=== PATIENT | male | born 1965 | race Caucasian/White ===

== ENCOUNTER 2017-09-06 09:24 | Inpatient (IN) | payer OTHER ==
[~2017-09-06] VITALS: Ht 172.7 cm; Wt 88.8 kg
[2017-09-06] MEDS ORDERED: SODIUM CHLORIDE 0.9% 1,000 ML IV ONE ×2 (09:45→12:00)
[2017-09-06] MEDS ORDERED: ONDANSETRON 2MG/ML, 2ML IVPush ONE (10:00)
[2017-09-06] MEDS ORDERED: SODIUM CHLORIDE FLUSH 10ML SYR IVF ONE (10:00)
[2017-09-06] MEDS ORDERED: SODIUM CHLORIDE 0.9% 1,000ML IVBOLUS ONE ×2 (10:00→11:30)
[2017-09-06] MEDS ORDERED: HYDROmorphone 2 MG/ML, 1ML ONE ×4 (10:16→18:55)
[2017-09-06] MEDS ORDERED: ONDANSETRON 2MG/ML, 2ML ONE ×2 (10:16→17:15)
[2017-09-06 10:32] LABS: MEAN CORPUSCULAR HEMOGLOBIN 31.7 pg (27.5-34.5); MEAN CORPUSCULAR VOLUME 93.4 fL (81-97); MEAN PLATELET VOLUME 8.8 fL (7.4-10.4); PLATELET COUNT 186 x10^3/uL (130-400); RED CELL DISTRIBUTION WIDTH 13.5 % (9.4-14.8)
[2017-09-06] MEDS: HYDROmorphone 1 MG/ML, 1ML IVPush PRN ×2 (10:32→11:50)
[2017-09-06 10:46] LABS: ALBUMIN 4.1 g/dL (3.4-5.0); ANION GAP 13 mmol/L (5-15); CALCIUM 9.2 mg/dL (8.5-10.1); CHLORIDE 86 mmol/L (98-107)
[2017-09-06 10:50] LABS: ALANINE AMINOTRANSFERASE 32 U/L (12-78); ALKALINE PHOSPHATASE 82 U/L (45-117); BILIRUBIN,TOTAL 2.4 mg/dL (0.2-1.0); TOTAL PROTEIN 8.7 g/dL (6.4-8.2)
[2017-09-06 10:54] LABS: BASOPHILS # (AUTO) 0.02 x10^3/uL (0-0.1); BASOPHILS % (AUTO) 0 % (0-1); EOSINOPHILS % (AUTO) 0 % (1-7); LYMPHOCYTES # (AUTO) 0.33 x10^3/uL (1-3.4); LYMPHOCYTES % (AUTO) 2 % (22-44); MD SCAN; MONOCYTES # (AUTO) 1.22 x10^3/uL (0.2-0.8); MONOCYTES % (AUTO) 6 % (2-9); NEUTROPHILS # (AUTO) 18.02 x10^3/uL (1.8-6.8); NEUTROPHILS % (AUTO) 92 % (42-75)
[2017-09-06] MEDS ORDERED: OMNIPAQUE 350 MG/ML, 100ML BOTTLE ONE (11:29)
[2017-09-06] MEDS ORDERED: CEFOTETAN PMX 1GM/50ML 50 ML ONE (11:56)
[2017-09-06] MEDS ORDERED: MORPHINE SULFATE 4 MG/ML, 1ML IVPush PRN ×2 (12:00→20:30)
[2017-09-06] MEDS ORDERED: SODIUM CHLORIDE FLUSH 10ML SYR IVF PRN (12:00)
[2017-09-06] MEDS ORDERED: CEFOTETAN PMX 1GM/50ML 50 ML IV ONE (12:00)
[2017-09-06] MEDS ORDERED: ONDANSETRON 2MG/ML, 2ML IVPush PRN (12:00)
[2017-09-06 12:04] LABS: MICROSCOPIC INDICATED
[2017-09-06 12:20] LABS: CULTURE INDICATED? NO
[2017-09-06] MEDS: SODIUM CHLORIDE 0.9% 1,000 ML IV SCH ×2 (13:30→20:23)
[2017-09-06 13:32] VITALS: BP 116/75
[2017-09-06] MEDS: HEPARIN 5,000 UNITS/ML, 1ML SQ SCH (14:00)
[2017-09-06] MEDS: morphine SULFATE 10 MG/ML, 1ML IVPush PRN ×2 (14:08→15:12)
[2017-09-06 15:15] LABS: INTERNATIONAL NORMALIZED RATIO 1.03 (0.93-1.1); PROTHROMBIN TIME 10.6 Seconds (9.6-11.5)
[2017-09-06] MEDS: PIPERACILLIN/TAZO/PMX 4.5GM 100 ML IV SCH ×2 (15:47→23:55)
[2017-09-06] MEDS ORDERED: EPINEPHRINE 1 MG/ML, 1ML ONE (16:34)
[2017-09-06] MEDS ORDERED: BUPIVACAINE/PF 0.5% ONE (16:34)
[2017-09-06] MEDS ORDERED: MIDAZOLAM 1 MG/ML, 2ML ONE (16:41)
[2017-09-06] MEDS ORDERED: FENTANYL PF 250 MCG/5ML ONE (16:41)
[2017-09-06] MEDS ORDERED: DEXAMETHASONE 4 MG/ML, 1ML ONE (17:15)
[2017-09-06] MEDS ORDERED: PROPOFOL 10 MG/ML, 20ML ONE (17:15)
[2017-09-06] MEDS ORDERED: NEOSTIGMINE 1 MG/ML, 10ML ONE (17:15)
[2017-09-06] MEDS ORDERED: GLYCOPYRROLATE 0.2MG/1ML, 5ML ONE (17:15)
[2017-09-06] MEDS ORDERED: KETOROLAC 30 MG/1 ML ONE (17:15)
[2017-09-06] MEDS ORDERED: ROCURONIUM 10 MG/ML,10ML ONE (17:15)
[2017-09-06] MEDS ORDERED: SUCCINYLCHOLINE 20 MG/ML, 10ML ONE (17:15)
[2017-09-06 17:19] LABS: POTASSIUM,URINE RANDOM 33 mmol/L; PROTEIN/CREATININE RATIO,URINE 943 (0-200); SODIUM,URINE RANDOM 8 mmol/L; TOTAL PROTEIN,URINE RANDOM 88 mg/dL (0-12)
[2017-09-06 17:21] LABS: CHLORIDE,URINE RANDOM < 10 mmol/L
[2017-09-06] MEDS ORDERED: ACETAMINOPHEN 325 MG TABLET PO PRN (18:00)
[2017-09-06] MEDS ORDERED: LABETALOL 5MG/ML, 20ML IV PRN (18:00)
[2017-09-06] MEDS ORDERED: PROMETHAZINE 12.5 MG SUPP PR PRN (18:00)
[2017-09-06] MEDS ORDERED: MEPERIDINE/PF 25MG/0.5ML IVPush PRN (18:00)
[2017-09-06] MEDS ORDERED: LORazepam 2 MG/ML, 1ML IVPush PRN (18:00)
[2017-09-06] MEDS ORDERED: FENTANYL PF 100 MCG/2ML IV PRN (18:00)
[2017-09-06] MEDS ORDERED: OXYcodone 5 MG/5 ML ORAL.SOL UDC PO PRN (18:00)
[2017-09-06] MEDS ORDERED: hydrALAzine 20 MG/ML, 1ML IV PRN (18:00)
[2017-09-06] MEDS ORDERED: ALBUTEROL SULFATE 2.5 MG/3 ML NPPB PRN (18:00)
[2017-09-06] MEDS ORDERED: ACETAMINOPHEN 650 MG/20.3 ML UDC ONE (18:55)
[2017-09-06] MEDS ORDERED: OXYcodone 5 MG/5 ML ORAL.SOL UDC ONE (18:55)
[2017-09-06] MEDS: HYDROmorphone 1 MG/ML, 1ML IV PRN ×3 (19:00→19:25)
[2017-09-06] MEDS ORDERED: FENTANYL PF 100 MCG/2ML ONE (19:28)
[2017-09-06 20:00] VITALS: BP 108/72
[2017-09-06] MEDS: ONDANSETRON 2MG/ML, 2ML IVPush PRN (20:27)
[2017-09-06] MEDS: LACTATED RINGERS 1,000 ML IV SCH (21:19)
[2017-09-06] MEDS: KETOROLAC 30 MG/1 ML IVPush PRN (21:25)
[2017-09-06] MEDS: HYDROcodone/APAP 5/325 TABLET PO PRN (23:54)
[2017-09-06 23:57] VITALS: BP 107/62
[2017-09-07] MEDS: LACTATED RINGERS 1,000 ML IV SCH ×4 (00:58→22:03)
[2017-09-07] MEDS: HEPARIN 5,000 UNITS/ML, 1ML SQ SCH ×2 (01:31→14:12)
[2017-09-07] MEDS: SODIUM CHLORIDE 0.9% 1,000 ML IV SCH ×2 (01:32→08:13)
[2017-09-07] MEDS: HYDROcodone/APAP 5/325 TABLET PO PRN ×4 (04:12→19:13)
[2017-09-07 04:19] VITALS: BP 100/64
[2017-09-07 05:23] LABS: ANION GAP 7 mmol/L (5-15); CALCIUM 7.7 mg/dL (8.5-10.1); CHLORIDE 96 mmol/L (98-107); CREATININE 0.97 mg/dL (0.7-1.3)
[2017-09-07 05:52] LABS: BASOPHILS % (AUTO) 0 % (0-1); EOSINOPHILS % (AUTO) 0 % (1-7); LYMPHOCYTES # (AUTO) 0.21 x10^3/uL (1-3.4); LYMPHOCYTES % (AUTO) 4 % (22-44); MD NO; MEAN CORPUSCULAR HEMOGLOBIN 32.3 pg (27.5-34.5); MEAN CORPUSCULAR HGB CONC 34.7 g/dL (33.2-36.2); MEAN CORPUSCULAR VOLUME 93.1 fL (81-97); MEAN PLATELET VOLUME 8.8 fL (7.4-10.4); MONOCYTES # (AUTO) 0.51 x10^3/uL (0.2-0.8); MONOCYTES % (AUTO) 9 % (2-9); NEUTROPHILS % (AUTO) 88 % (42-75); PLATELET COUNT 149 x10^3/uL (130-400); RED CELL DISTRIBUTION WIDTH 13.7 % (9.4-14.8)
[2017-09-07] MEDS ORDERED: CEFOTETAN PMX 2GM/50ML 50 ML IV SCH (06:00)
[2017-09-07] MEDS: KETOROLAC 30 MG/1 ML IVPush PRN ×2 (06:38→14:13)
[2017-09-07 07:51] VITALS: BP 98/58
[2017-09-07] MEDS: PIPERACILLIN/TAZO/PMX 4.5GM 100 ML IV SCH ×2 (08:13→16:05)
[2017-09-07 17:30] VITALS: BP 114/63
[2017-09-07] MEDS: CEFOTETAN PMX 2GM/50ML 50 ML IV SCH (17:54)
[2017-09-07 19:23] VITALS: BP 111/73
[2017-09-07] MEDS ORDERED: MELATONIN 5 MG TABLET PO PRN (21:00)
[2017-09-07] MEDS ORDERED: DIPHENHYDRAMINE 50 MG CAPSULE PO PRN (21:00)
[2017-09-08] MEDS: PIPERACILLIN/TAZO/PMX 4.5GM 100 ML IV SCH ×3 (00:04→16:56)
[2017-09-08] MEDS: HYDROcodone/APAP 5/325 TABLET PO PRN ×6 (00:05→22:56)
[2017-09-08] MEDS: HEPARIN 5,000 UNITS/ML, 1ML SQ SCH ×2 (02:42→13:52)
[2017-09-08 02:44] VITALS: BP 116/71
[2017-09-08] MEDS: ONDANSETRON 2MG/ML, 2ML IVPush PRN (06:09)
[2017-09-08] MEDS: CEFOTETAN PMX 2GM/50ML 50 ML IV SCH ×2 (06:09→18:29)
[2017-09-08 07:24] VITALS: BP 121/74
[2017-09-08] MEDS: LACTATED RINGERS 1,000 ML IV SCH ×2 (08:39→18:29)
[2017-09-08] MEDS ORDERED: ALUMINUM/MAG/SIMETHICONE 30 ML UDC PO PRN (09:30)
[2017-09-08] MEDS: FAMOTIDINE 20 MG/2 ML IVPush SCH ×2 (09:50→20:21)
[2017-09-08] MEDS: KETOROLAC 30 MG/1 ML IVPush SCH ×3 (09:50→22:56)
[2017-09-08 13:19] VITALS: BP 117/74
[2017-09-08 19:16] VITALS: BP 122/77
[2017-09-09] MEDS: PIPERACILLIN/TAZO/PMX 4.5GM 100 ML IV SCH ×3 (00:20→15:57)
[2017-09-09] MEDS: HEPARIN 5,000 UNITS/ML, 1ML SQ SCH ×2 (02:24→14:40)
[2017-09-09 02:32] VITALS: BP 124/71
[2017-09-09] MEDS: HYDROcodone/APAP 5/325 TABLET PO PRN ×5 (03:06→20:48)
[2017-09-09] MEDS: LACTATED RINGERS 1,000 ML IV SCH ×2 (04:00→15:57)
[2017-09-09 05:32] LABS: BASOPHILS # (AUTO) 0.04 x10^3/uL (0-0.1); BASOPHILS % (AUTO) 1 % (0-1); EOSINOPHILS # (AUTO) 0.13 x10^3/uL (0-0.4); EOSINOPHILS % (AUTO) 2 % (1-7); LYMPHOCYTES # (AUTO) 0.44 x10^3/uL (1-3.4); LYMPHOCYTES % (AUTO) 7 % (22-44); MD NO; MEAN CORPUSCULAR HEMOGLOBIN 31.9 pg (27.5-34.5); MEAN CORPUSCULAR HGB CONC 34.3 g/dL (33.2-36.2); MEAN PLATELET VOLUME 8.7 fL (7.4-10.4); MONOCYTES # (AUTO) 0.58 x10^3/uL (0.2-0.8); MONOCYTES % (AUTO) 10 % (2-9); NEUTROPHILS # (AUTO) 4.83 x10^3/uL (1.8-6.8); NEUTROPHILS % (AUTO) 80 % (42-75); PLATELET COUNT 186 x10^3/uL (130-400); RED BLOOD COUNT 3.64 x10^6/uL (4.38-5.82); RED CELL DISTRIBUTION WIDTH 13.5 % (9.4-14.8)
[2017-09-09 05:34] LABS: ALBUMIN 2.2 g/dL (3.4-5.0); ANION GAP 9 mmol/L (5-15); CALCIUM 8.1 mg/dL (8.5-10.1); CHLORIDE 95 mmol/L (98-107); CREATININE 0.71 mg/dL (0.7-1.3)
[2017-09-09] MEDS: KETOROLAC 30 MG/1 ML IVPush SCH (06:42)
[2017-09-09 06:54] VITALS: BP 125/74
[2017-09-09] MEDS: CEFOTETAN PMX 2GM/50ML 50 ML IV SCH (07:24)
[2017-09-09] MEDS: FAMOTIDINE 20 MG/2 ML IVPush SCH ×2 (08:22→20:48)
[2017-09-09 12:25] VITALS: BP 129/72
[2017-09-09 20:16] VITALS: BP 134/82
[2017-09-09] MEDS: BISACODYL 10 MG SUPP PR SCH (23:05)
[2017-09-10] MEDS: PIPERACILLIN/TAZO/PMX 4.5GM 100 ML IV SCH ×3 (00:12→15:51)
[2017-09-10] MEDS: LACTATED RINGERS 1,000 ML IV SCH ×3 (02:54→20:00)
[2017-09-10] MEDS: HEPARIN 5,000 UNITS/ML, 1ML SQ SCH ×2 (02:54→13:01)
[2017-09-10 04:36] VITALS: BP 128/78
[2017-09-10 05:27] LABS: BASOPHILS # (AUTO) 0.07 x10^3/uL (0-0.1); BASOPHILS % (AUTO) 1 % (0-1); EOSINOPHILS # (AUTO) 0.13 x10^3/uL (0-0.4); EOSINOPHILS % (AUTO) 2 % (1-7); LYMPHOCYTES # (AUTO) 0.74 x10^3/uL (1-3.4); LYMPHOCYTES % (AUTO) 10 % (22-44); MD NO; MEAN CORPUSCULAR HEMOGLOBIN 31.8 pg (27.5-34.5); MEAN CORPUSCULAR HGB CONC 34.3 g/dL (33.2-36.2); MEAN CORPUSCULAR VOLUME 92.8 fL (81-97); MONOCYTES # (AUTO) 0.74 x10^3/uL (0.2-0.8); MONOCYTES % (AUTO) 10 % (2-9); NEUTROPHILS % (AUTO) 78 % (42-75); PLATELET COUNT 232 x10^3/uL (130-400); RED BLOOD COUNT 3.78 x10^6/uL (4.38-5.82); RED CELL DISTRIBUTION WIDTH 13.3 % (9.4-14.8)
[2017-09-10] MEDS: BISACODYL 10 MG SUPP PR SCH ×2 (08:15→20:51)
[2017-09-10 08:23] VITALS: BP 131/77
[2017-09-10] MEDS: HYDROcodone/APAP 5/325 TABLET PO PRN ×3 (08:23→17:35)
[2017-09-10] MEDS: FAMOTIDINE 20 MG/2 ML IVPush SCH ×2 (08:23→20:51)
[2017-09-10 17:19] VITALS: BP 134/73
[2017-09-10 19:42] VITALS: BP 130/73
[2017-09-11] MEDS: PIPERACILLIN/TAZO/PMX 4.5GM 100 ML IV SCH ×3 (01:20→18:11)
[2017-09-11] MEDS: HEPARIN 5,000 UNITS/ML, 1ML SQ SCH ×2 (01:25→13:32)
[2017-09-11 02:42] VITALS: BP 122/72
[2017-09-11] MEDS: ACETAMINOPHEN 325 MG TABLET PO PRN ×5 (04:00→22:13)
[2017-09-11 04:37] LABS: BASOPHILS # (AUTO) 0.03 x10^3/uL (0-0.1); BASOPHILS % (AUTO) 0 % (0-1); EOSINOPHILS # (AUTO) 0.18 x10^3/uL (0-0.4); EOSINOPHILS % (AUTO) 2 % (1-7); LYMPHOCYTES # (AUTO) 0.84 x10^3/uL (1-3.4); LYMPHOCYTES % (AUTO) 10 % (22-44); MD NO; MEAN CORPUSCULAR HEMOGLOBIN 31.7 pg (27.5-34.5); MEAN CORPUSCULAR VOLUME 93.4 fL (81-97); MEAN PLATELET VOLUME 7.9 fL (7.4-10.4); MONOCYTES # (AUTO) 0.88 x10^3/uL (0.2-0.8); MONOCYTES % (AUTO) 11 % (2-9); NEUTROPHILS # (AUTO) 6.25 x10^3/uL (1.8-6.8); NEUTROPHILS % (AUTO) 76 % (42-75); PLATELET COUNT 259 x10^3/uL (130-400); RED BLOOD COUNT 3.65 x10^6/uL (4.38-5.82); RED CELL DISTRIBUTION WIDTH 13.5 % (9.4-14.8)
[2017-09-11 07:17] VITALS: BP 122/68
[2017-09-11] MEDS: BISACODYL 10 MG SUPP PR SCH (08:48)
[2017-09-11] MEDS: FAMOTIDINE 20 MG/2 ML IVPush SCH ×2 (08:49→21:00)
[2017-09-11] MEDS: LACTATED RINGERS 1,000 ML IV SCH (11:04)
[2017-09-11 13:31] VITALS: BP 117/74
[2017-09-11] MEDS ORDERED: BISACODYL 10 MG SUPP PR PRN (14:30)
[2017-09-11] MEDS ORDERED: POTASSIUM PHOS 4.4 MEQ/ML IV ONE (15:00)
[2017-09-11] MEDS ORDERED: POTASSIUM PHOSPHATE 22 MEQ in SODIUM CHLORIDE 0.9% 500 ML IV ONE (15:30)
[2017-09-11 20:28] VITALS: BP 136/75
[2017-09-12 03:55] VITALS: BP 128/76
[2017-09-12 04:07] LABS: BASOPHILS # (AUTO) 0.04 x10^3/uL (0-0.1); BASOPHILS % (AUTO) 1 % (0-1); EOSINOPHILS # (AUTO) 0.24 x10^3/uL (0-0.4); EOSINOPHILS % (AUTO) 3 % (1-7); LYMPHOCYTES # (AUTO) 0.99 x10^3/uL (1-3.4); LYMPHOCYTES % (AUTO) 11 % (22-44); MD NO; MEAN CORPUSCULAR HEMOGLOBIN 31.5 pg (27.5-34.5); MEAN CORPUSCULAR HGB CONC 34.2 g/dL (33.2-36.2); MEAN CORPUSCULAR VOLUME 92.3 fL (81-97); MEAN PLATELET VOLUME 7.5 fL (7.4-10.4); MONOCYTES # (AUTO) 0.86 x10^3/uL (0.2-0.8); MONOCYTES % (AUTO) 10 % (2-9); NEUTROPHILS # (AUTO) 6.52 x10^3/uL (1.8-6.8); NEUTROPHILS % (AUTO) 75 % (42-75); PLATELET COUNT 292 x10^3/uL (130-400); RED BLOOD COUNT 3.67 x10^6/uL (4.38-5.82); RED CELL DISTRIBUTION WIDTH 14.1 % (9.4-14.8)
[2017-09-12] MEDS: PIPERACILLIN/TAZO/PMX 4.5GM 100 ML IV SCH (04:12)
[2017-09-12] MEDS: HEPARIN 5,000 UNITS/ML, 1ML SQ SCH (04:12)
[2017-09-12 04:17] LABS: CHLORIDE 102 mmol/L (98-107)
[2017-09-12 04:22] LABS: ANION GAP 12 mmol/L (5-15); CALCIUM 7.5 mg/dL (8.5-10.1); CREATININE 0.48 mg/dL (0.7-1.3)
[2017-09-12 06:58] VITALS: BP 123/79
[2017-09-12] MEDS: ACETAMINOPHEN 325 MG TABLET PO PRN (09:00)
[2017-09-12] MEDS ORDERED: FAMOTIDINE 20 MG TABLET PO SCH (09:00)
[2017-09-12] MEDS ORDERED: AMOX1TAB64 PO (11:07)
[2017-09-12 12:06] VITALS: BP 138/80
== END 2017-09-12 12:54 | disposition home or self-care (01) | DRG 853 ==
LOC: ED 11:16 → EDIP 12:00 → 4NOR 13:32 → DCLOUNGE 09-12 12:45
PROVIDERS: ADMIT Surgery; ATTEND Family Medicine
PROC: 0DJD4ZZ Inspection of Lower Intestinal Tract, Percutaneous Endoscopic Approach (ICD-10-PCS; 2017-09-06)
PROC: 0DTJ0ZZ Resection of Appendix, Open Approach (ICD-10-PCS; principal; 2017-09-06 17:00)
DX: A41.9 Sepsis, unspecified organism (principal); E43 Unspecified severe protein-calorie malnutrition; K56.609 Unspecified intestinal obstruction, unspecified as to partial versus complete obstruction; E22.2 Syndrome of inappropriate secretion of antidiuretic hormone; N17.9 Acute kidney failure, unspecified; K35.3 Acute appendicitis with localized peritonitis; E83.39 Other disorders of phosphorus metabolism; K56.7 Ileus, unspecified; D64.9 Anemia, unspecified; K21.9 Gastro-esophageal reflux disease without esophagitis; K40.90 Unilateral inguinal hernia, without obstruction or gangrene, not specified as recurrent; Z53.31 Laparoscopic surgical procedure converted to open procedure; Z68.29 Body mass index [BMI] 29.0-29.9, adult
CPT/HCPCS: 36415; 74018; 74177; 76700; 80048; 80053; 81001; 82040; 82140; 82436; 82570; 83605; 83690; 83735; 84100; 84133; 84156; 84300; 85025; 85610; 85730; 87040; 88304; C1729; J0171; J1100; J1170; J1644; J1885; J2250; J2405; J2543; J2704; J2710; J3010; J3490; Q9967; J0330; J2270; J7030; J7040; J7120; S0028; S0074

== ENCOUNTER → 2018-01-06 | Outpatient (CLI) | payer OTHER ==
[~2018-01-06] MED LIST: AMOX1TAB64 PO; No meds per pt.
== END ==
LOC: STAR 11:04
PROVIDERS: ATTEND Surgery
DX: Z02.9 Encounter for administrative examinations, unspecified (principal)

== ENCOUNTER 2018-01-15 08:06 | Inpatient (IN) | payer OTHER ==
[~2018-01-15] VITALS: Ht 172.7 cm; Wt 84.0 kg
[~2018-01-15 08:06] MED LIST changes: +BUPIVACAINE 0.25% ONE
[2018-01-15] MEDS ORDERED: GABAPENTIN 300 MG CAPSULE PO ONE (08:30)
[2018-01-15] MEDS ORDERED: TAMSULOSIN 0.4 MG CAP.ER.24H PO ONE (08:30)
[2018-01-15] MEDS ORDERED: ACETAMINOPHEN 500 MG TABLET PO ONE (08:30)
[2018-01-15] MEDS ORDERED: FAMOTIDINE 20 MG TABLET PO ONE (08:30)
[2018-01-15] MEDS ORDERED: METOCLOPRAMIDE 10MG TABLET PO ONE (08:30)
[2018-01-15] MEDS ORDERED: LACTATED RINGERS 1,000 ML IV SCH ×2 (08:37→18:00)
[2018-01-15 09:08] VITALS: BP 105/69
[2018-01-15] MEDS ORDERED: FENTANYL PF 100 MCG/2ML ONE ×4 (09:47→15:58)
[2018-01-15] MEDS ORDERED: MIDAZOLAM 1 MG/ML, 2ML ONE (09:49)
[2018-01-15] MEDS ORDERED: ROCURONIUM 10 MG/ML,10ML ONE (10:30)
[2018-01-15] MEDS ORDERED: SUCCINYLCHOLINE 20 MG/ML, 10ML ONE (10:30)
[2018-01-15] MEDS ORDERED: KETAMINE 10 MG/ML, 20ML ONE (10:30)
[2018-01-15] MEDS ORDERED: CEFAZOLIN 1,000 MG ONE ×2 (10:30)
[2018-01-15] MEDS ORDERED: DEXAMETHASONE 4 MG/ML, 1ML ONE (10:30)
[2018-01-15] MEDS ORDERED: PROPOFOL 10 MG/ML, 20ML ONE (10:30)
[2018-01-15] MEDS ORDERED: NEOSTIGMINE 1 MG/ML, 10ML ONE (10:30)
[2018-01-15] MEDS ORDERED: GLYCOPYRROLATE 0.2MG/1ML, 5ML ONE (10:30)
[2018-01-15] MEDS ORDERED: BUPIVACAINE/PF-EPI 0.25% 1:200K IM ONE (11:07)
[2018-01-15] MEDS ORDERED: ONDANSETRON 2MG/ML, 2ML ONE (15:57)
[2018-01-15] MEDS: FENTANYL PF 100 MCG/2ML IV PRN ×3 (16:00→16:15)
[2018-01-15] MEDS ORDERED: PROMETHAZINE 25 MG/ML, 1ML ONE (16:23)
[2018-01-15] MEDS ORDERED: ONDANSETRON ODT 8 MG PO PRN (16:30)
[2018-01-15] MEDS ORDERED: PROMETHAZINE 25 MG/ML, 1ML IV PRN (16:30)
[2018-01-15] MEDS ORDERED: ONDANSETRON 2MG/ML, 2ML IVPush ONE (16:30)
[2018-01-15] MEDS ORDERED: KETOROLAC 30 MG/1 ML IV PRN (16:30)
[2018-01-15] MEDS ORDERED: OXYcodone 5 MG/5 ML ORAL.SOL UDC PO PRN (16:30)
[2018-01-15] MEDS ORDERED: ACETAMINOPHEN 325 MG TABLET PO PRN (16:30)
[2018-01-15] MEDS ORDERED: MORPHINE SULFATE 4 MG/ML, 1ML IVPush PRN (16:30)
[2018-01-15] MEDS ORDERED: MEPERIDINE/PF 25MG/0.5ML IVPush PRN (16:30)
[2018-01-15] MEDS ORDERED: ALBUTEROL SULFATE 2.5 MG/3 ML NPPB PRN (16:30)
[2018-01-15] MEDS ORDERED: OXYcodone 5 MG/5 ML ORAL.SOL UDC ONE ×2 (17:03→17:04)
[2018-01-15 18:10] VITALS: BP 117/86
[2018-01-15] MEDS ORDERED: MORPHINE SULFATE 4 MG/ML, 1ML ONE (18:10)
[2018-01-15] MEDS: morphine SULFATE 10 MG/ML, 1ML IVPush PRN ×2 (18:15→22:36)
[2018-01-15 19:12] VITALS: BP 134/85
[2018-01-15] MEDS ORDERED: ONDANSETRON 2MG/ML, 2ML IVPush PRN (19:30)
[2018-01-15] MEDS: ACETAMINOPHEN 500 MG TABLET PO SCH (19:30)
[2018-01-15] MEDS ORDERED: LACTATED RINGERS 1,000 ML IVBOLUS ONE (21:00)
[2018-01-15] MEDS ORDERED: PROMETHAZINE 25 MG/ML, 1ML IM PRN (21:00)
[2018-01-15 21:01] LABS: BASOPHILS # (AUTO) 0.01 x10^3/uL (0-0.1); BASOPHILS % (AUTO) 0 % (0-1); EOSINOPHILS % (AUTO) 0 % (1-7); LYMPHOCYTES # (AUTO) 0.49 x10^3/uL (1-3.4); LYMPHOCYTES % (AUTO) 5 % (22-44); MD NO; MEAN CORPUSCULAR HEMOGLOBIN 31.6 pg (27.5-34.5); MEAN CORPUSCULAR HGB CONC 33.6 g/dL (33.2-36.2); MEAN CORPUSCULAR VOLUME 93.8 fL (81-97); MEAN PLATELET VOLUME 8.1 fL (7.4-10.4); MONOCYTES # (AUTO) 0.67 x10^3/uL (0.2-0.8); MONOCYTES % (AUTO) 6 % (2-9); NEUTROPHILS # (AUTO) 9.44 x10^3/uL (1.8-6.8); NEUTROPHILS % (AUTO) 89 % (42-75); PLATELET COUNT 196 x10^3/uL (130-400); RED BLOOD COUNT 4.41 x10^6/uL (4.38-5.82); RED CELL DISTRIBUTION WIDTH 14.5 % (9.4-14.8)
[2018-01-15 21:43] LABS: TROPONIN I < 0.015 ng/mL (0.000-0.045)
[2018-01-15 21:46] LABS: ALANINE AMINOTRANSFERASE 23 U/L (12-78); ALBUMIN 3.7 g/dL (3.4-5.0); ANION GAP 8 mmol/L (5-15); CALCIUM 8.4 mg/dL (8.5-10.1); CHLORIDE 108 mmol/L (98-107); CREATININE 0.85 mg/dL (0.7-1.3)
[2018-01-15 21:48] LABS: ALKALINE PHOSPHATASE 58 U/L (45-117); BILIRUBIN,TOTAL 0.6 mg/dL (0.2-1.0); TOTAL PROTEIN 6.7 g/dL (6.4-8.2)
[2018-01-15 22:40] VITALS: BP 119/76
[2018-01-15 23:03] VITALS: BP 129/74
[2018-01-16] MEDS: OXYcodone IR 5MG TABLET PO PRN ×2 (01:08→06:25)
[2018-01-16 01:24] VITALS: BP 112/67
[2018-01-16] MEDS: ACETAMINOPHEN 500 MG TABLET PO SCH ×2 (03:33→08:02)
[2018-01-16 06:00] LABS: BASOPHILS # (AUTO) 0.02 x10^3/uL (0-0.1); BASOPHILS % (AUTO) 0 % (0-1); EOSINOPHILS # (AUTO) 0.01 x10^3/uL (0-0.4); EOSINOPHILS % (AUTO) 0 % (1-7); LYMPHOCYTES # (AUTO) 0.87 x10^3/uL (1-3.4); LYMPHOCYTES % (AUTO) 12 % (22-44); MD NO; MEAN CORPUSCULAR HEMOGLOBIN 31.8 pg (27.5-34.5); MEAN CORPUSCULAR HGB CONC 33.9 g/dL (33.2-36.2); MEAN CORPUSCULAR VOLUME 93.7 fL (81-97); MEAN PLATELET VOLUME 8.7 fL (7.4-10.4); MONOCYTES # (AUTO) 0.76 x10^3/uL (0.2-0.8); MONOCYTES % (AUTO) 11 % (2-9); NEUTROPHILS # (AUTO) 5.34 x10^3/uL (1.8-6.8); NEUTROPHILS % (AUTO) 76 % (42-75); PLATELET COUNT 162 x10^3/uL (130-400); RED BLOOD COUNT 3.96 x10^6/uL (4.38-5.82); RED CELL DISTRIBUTION WIDTH 14.4 % (9.4-14.8)
[2018-01-16 08:00] VITALS: BP 106/67
[2018-01-16] MEDS ORDERED: OXYC-302 PO (09:09)
== END 2018-01-16 09:15 | disposition home or self-care (01) | DRG 337 ==
LOC: OUT 08:06 → 4NOR 17:43 → OUT 17:54 → 4NOR 17:55 → 5SO 22:51 → DCLOUNGE 01-16 09:05
PROVIDERS: ADMIT Surgery; ATTEND Surgery
PROC: 0DNW4ZZ Release Peritoneum, Percutaneous Endoscopic Approach (ICD-10-PCS; 2018-01-15)
PROC: 8E0W4CZ Robotic Assisted Procedure of Trunk Region, Percutaneous Endoscopic Approach (ICD-10-PCS; 2018-01-15)
PROC: 0WUF4JZ Supplement Abdominal Wall with Synthetic Substitute, Percutaneous Endoscopic Approach (ICD-10-PCS; principal; 2018-01-15 10:00)
DX: K43.2 Incisional hernia without obstruction or gangrene (principal)
CPT/HCPCS: 36415; 74018; 80053; 83735; 84484; 85025; 93005; J0690; J1100; J2250; J2405; J2550; J2704; J2710; J3010; J3490; Q0162; C1781; J0330; J2270; J7120